=== PATIENT | male | born 1980 | race Caucasian/White ===

== ENCOUNTER 2023-08-09 09:44 | Emergency (ER) | payer OTHER, SELFPAY ==
[2023-08-09 09:47] VITALS: BP 110/65; PULSE 47; RESP 18; TEMP 36.8; O2SAT 98; BMI 25.1
--- NOTE | 2023-08-09 10:04 | ED_ITS ---
HPI - General Adult General Chief complaint: Abdominal Pain Stated complaint: abdominal pain Time Seen by Provider: 08/09/23 09:45 History of Present Illness HPI narrative: low abd pain for several weeks. worse today. denies fevers, vomiting or diarrhea. states had a big BM today 43-year-old man presenting to the emergency department with complaint of intermittent lower abdominal cramping pain. Did have a large bowel movement today. Would not typically consider himself constipated. This pain has been coming and going over the last couple of weeks. Seems to be getting worse. He can be nauseated with the pain. Actually after defecation can have more pain. He has had flares of this pain while driving ?here it comes and ?. Has not noted any melena or hematochezia. No dysuria frequency or urgency. No hematuria. No fever. No vomiting. I note bradycardia on arrival/initial vital. Apparently this has been chronic and he is asymptomatic otherwise their report. Related Data Previous Rx's Medication Instructions Recorded hyoscyamine sulfate 0.125 mg tablet 0.25 mg (2 x 0.125 mg) PO QID PRN 08/09/23 For abdominal cramping #30 tabs Allergies Allergy/AdvReac Type Severity Reaction Status Date / Time No Known Drug Allergies Allergy Verified 08/09/23 09:49 Review of Systems Status of ROS: Reports: 6 or more systems reviewed and unremarkable except as noted in History and below Exam Narrative: Exam Narrative: Pleasant. NAD. Cranial nerves 2-12 look to be intact. Breathing easily. Lungs appear to be clear. Oropharynx is moist. Heart in slow regular rhythm. No murmur rub or gallop. Abdomen with present bowel sounds. Soft without peritoneal signs but generally tender across the low abdomen right greater than left. No masses appreciated. Const: Vital Signs, click to edit/add: Vital Signs - 24 hr 08/09/23 09:47 Temperature 98.2 F Pulse Rate [Right Pulse Oximeter] 47 L Respiratory Rate 18 Blood Pressure [Ri ght Upper Arm] 110/65 Pulse Oximetry 98 Oxygen Delivery Me thod Room Air Documenting provider has reviewed patient's vital signs: yes Course Vital Signs Vital signs: Initial Vital Signs Temperature 98.2 F 08/09/23 09:47 Temperature Source Temporal Artery Scan 08/09/23 09:47 Pulse Rate 47 L 08/09/23 09:47 Respiratory Rate 18 12/01/23 09:47 Blood Pressure 110/65 08/09/23 09:47 Blood Pressure Mean 80 08/09/23 09:47 Blood Pressure Position Sitting 08/09/23 09:47 Pulse Oximetry 98 08/09/23 09:47 Oxygen Delivery Method Room Air 08/09/23 09:47 Vital Signs Temperature 98.2 F 08/09/23 09:47 Pulse Rate 47 L 08/09/23 09:47 Respiratory Rate 18 08/09/23 09:47 Blood Pressure 110/65 08/09/23 09:47 Pulse Oximetry 98 08/09/23 09:47 Oxygen Delivery Method Room Air 08/09/23 09:47 Temperature 98.2 F 08/09/23 09:47 Pulse Rate 40 L 08/09/23 13:05 Respiratory Rate 18 08/09/23 13:05 Blood Pressure 116/59 L 08/09/23 13:05 Pulse Oximetry 98 08/09/23 13:05 Oxygen Delivery Method Room Air 08/09/23 13:05 Medications Administered Medications: Discontinued Medications Generic Name Dose Route Start Last Admin Trade Name Freq PRN Reason Stop Dose Admin Sodium Chloride 1,000 mls @ 1,000 mls/hr 08/09/23 11:54 08/09/23 13:39 0.9 % Sodium Chloride 1000 Ml IV 08/09/23 12:53 Infused .Q1H K[facility]IDEN Infusion Medical Decision Making MDM Narrative Medical decision making narrative: Given duration of symptoms I think warrants imaging. Could as some more indolent process like malignancy. I suppose appendicitis could still be in differential. Enteritis or colitis though symptoms seem a little inconsistent. Constipation. Prostatitis. Urinary retention/infection. Hypoperfusion or ischemia? Bladder scan was about 50 mL. Proceeded then with labs which were unremarkable. Received L normal saline. Proceeded with contrasted CT of abdomen pelvis. I did review images of the CT. Appear to have some mild bladder wall thickening generally by my read. I did discuss this with Mr. Pretty. Radiology over-read though as below INDICATION: Lower abdominal cramping, predominantly on the right side TECHNIQUE: CT abdomen and pelvis acquired with 84 cc Isovue 370 IV contrast. COMPARISON: None. FINDINGS: Lower chest: Unremarkable. Liver: Unremarkable. Normal in size and attenuation. No suspicious masses. Gallbladder and bile ducts: Unremarkable. No stones or inflammation. No biliary dilatation. Pancreas: Unremarkable. No mass or inflammation. Spleen: Unremarkable. Normal in size. No masses. Adrenal glands: Unremarkable. No nodules. Kidneys: Unremarkable. No suspicious masses, stones, or hydronephrosis. GI tract: No evidence of bowel obstruction or inflammation. The few colonic diverticula. Vasculature: Abdominal aorta is normal in caliber. Mesenteric arteries are patent. Lymph nodes: No lymphadenopathy. Peritoneum/Abdominal Wall: Unremarkable. No sign of mass or infiltration. No free air or significant free fluid. Pelvis: There is mild circumferential bladder wall thickening. The prostate is within normal limits in size. The seminal vesicles are slightly enlarged with some wall enhancement. Bones: No acute fracture or malalignment. No suspicious osseous lesions. IMPRESSION: 1. The seminal vesicles are slightly enlarged with some wall enhancement, a nonspecific finding which can be seen with seminal vesiculitis. 2. Very mild circumferential bladder wall thickening which can be seen with bladder outlet obstruction or cystitis. Recommend correlation with urinalysis. 3. No free fluid or free air. No intra-abdominal abscess. I did return to complete a genitourinary exam. Testicles are symmetrical without tenderness and no masses appreciated. No evidence of hernia. Prostate exam with prostate noted to be smooth and not particularly tender. 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 Overall during time in the emergency department symptoms and settled and was improved. Perhaps symptoms represents some nonspecific irritable bowel? Some degree of constipation related? See patient discharge plan Lab Data Lab results reviewed: Yes I reviewed the patient's lab results Labs: Lab Results 08/09/23 08/09/23 Range/Units 10:10 10:45 WBC 4.59 (4.50-11.00) K/uL RBC 5.57 (4.30-5.90) m/uL Hgb 15.9 (13.5-17.5) gm/dL Hct 46.9 (37.0-53.0) % MCV 84 (80-100) fL MCH 29 (26-34) pg MCHC 34 (32-36) gm/dL RDW Coeff of Anay 11.7 (11.5-15.5) % Plt Count 238 (140-440) K/uL Neut % (Auto) 64.7 (42.0-72.0) % Lymph % (Auto) 25.5 (20-44) % Bartholomew % (Auto) 7.4 (0.0-11.0) % Eos % (Auto) 1.5 (0.0-7.0) % Baso % (Auto) 0.7 (0.0-3.0) % Neut # (Auto) 2.97 (1.7-7.0) K/uL Lymph # (Auto) 1.17 (0.90-2.90) K/uL Bartholomew # (Auto) 0.30 (0.00-0.90) K/UL Eos # (Auto) 0.07 (0.00-0.50) K/uL Baso # (Auto) 0.03 (0.00-0.30) K/uL Abs Immat Gran (auto) 0.01 (0.00-0.30) K/uL Imm/Tot Granulo (auto) 0.2 % ESR 2 (2-15) mm/hr Sodium 139 (135-149) mmol/L Potassium 4.0 (3.6-5.1) mmol/L Chloride 107 (96-114) mmol/L Carbon Dioxide 23 (20-32) mmol/L Anion Gap 9 (7-15) mEq/L BUN 16 (5-24) mg/dL Creatinine 0.8 (0.5-1.5) mg/dL Estimated Creat Clear 130.68 Estimated GFR 113 ml/min Glucose 109 (60-115) mg/dL Calcium 8.8 (8.4-10.6) mg/dL Total Bilirubin 0.8 (0.1-1.5) mg/dL Direct Bilirubin 0.0 (0.0-0.5) mg/dL AST 28 (12-35) U/L ALT 26 (4-50) U/L Alkaline Phosphatase 71 (40-150) U/L C-Reactive Protein < 0.5 L (0.5-1.0) mg/dL Total Protein 6.9 (6.0-8.3) g/dL Albumin 4.6 (3.3-5.0) g/dL Lipase 62 (23-300) U/L Urine Color Yellow (Yellow) Urine Appearance Clear (Clear) Urine pH 7.5 (5.0-8.5) Ur Specific [place] 1.020 (1.000-1.030) Urine Protein Negative (Negative) Urine Glucose (UA) Negative (Negative) Urine Ketones Trace A (Negative) Urine Blood Negative (Negative) Urine Nitrite Negative (Negative) Urine Bilirubin Negative (Negative) Urine Urobilinogen 0.2 (0.2-1.0) Ur Leukocyte Esterase Negative (Negative) Urine RBC 0-2 (0-2) Urine WBC 0-2 (0-5) Ur Squamous Epith Cells None (None-Few) Urine Bacteria None (None) Discharge Plan Discharge Clinical Impression: Seminal vesiculitis, Colicky abdominal pain Condition: Improved Additional Instructions: Continue to stay well-hydrated drinking 2-3 L of water/liquid daily. As I said, I think it would be a good idea to avoid having these larger bowel movements, at least for now. Probably could add MiraLax equivalent to your fluid regimen at least a couple of times daily over the next 1-2 weeks. Senna product can stimulate more regular bowel movements if needed. Please follow-up with primary care provider regarding findings here in [place] as well as your symptoms. Ideally within the next 3 weeks. I would also over the next 3-4 days take 400-600 mg of ibuprofen 3 times daily, maybe with a little food. Alternative to that would be up to 500 mg naproxen 2 times daily over this same time. Take copy of your imaging over-read by radiology and disc of images to follow- up. Prescriptions: New hyoscyamine sulfate 0.125 mg tablet 0.25 mg PO QID PRN (Reason: For abdominal cramping) Qty: 30 1RF Follow Up/Referrals: Provider,Not a Local [Primary Care Provider] - Stand Alone Forms: MyHealth Info Instructions
--- NOTE | 2023-08-09 10:44 | CRLHL7_ITS ---
For Patients: As a result of the Century Cures Act, medical imaging exams and procedure reports are released immediately into your electronic medical record. You may view this report before your referring provider. If you have questions, please contact your health care provider. INDICATION: Lower abdominal cramping, predominantly on the right side TECHNIQUE: CT abdomen and pelvis acquired with 84 cc Isovue 370 IV contrast. COMPARISON: None. FINDINGS: Lower chest: Unremarkable. Liver: Unremarkable. Normal in size and attenuation. No suspicious masses. Gallbladder and bile ducts: Unremarkable. No stones or inflammation. No biliary dilatation. Pancreas: Unremarkable. No mass or inflammation. Spleen: Unremarkable. Normal in size. No masses. Adrenal glands: Unremarkable. No nodules. Kidneys: Unremarkable. No suspicious masses, stones, or hydronephrosis. GI tract: No evidence of bowel obstruction or inflammation. The few colonic diverticula. Vasculature: Abdominal aorta is normal in caliber. Mesenteric arteries are patent. Lymph nodes: No lymphadenopathy. Peritoneum/Abdominal Wall: Unremarkable. No sign of mass or infiltration. No free air or significant free fluid. Pelvis: There is mild circumferential bladder wall thickening. The prostate is within normal limits in size. The seminal vesicles are slightly enlarged with some wall enhancement. Bones: No acute fracture or malalignment. No suspicious osseous lesions. IMPRESSION: 1. The seminal vesicles are slightly enlarged with some wall enhancement, a nonspecific finding which can be seen with seminal vesiculitis. 2. Very mild circumferential bladder wall thickening which can be seen with bladder outlet obstruction or cystitis. Recommend correlation with urinalysis. 3. No free fluid or free air. No intra-abdominal abscess. Please note that all CT scans at this facility use dose modulation, iterative reconstruction, and/or weight-based dosing when appropriate to reduce radiation dose to as low as reasonably achievable. Dictated by Boris Grant MD @ 08/09/2023 12:33:38 PM (Electronically Signed)
[2023-08-09 11:00] LABS: Appearance Urine Clear (Clear); Bilirubin Urine Negative (Negative); Blood Urine Negative (Negative); Color Urine Yellow (Yellow); Glucose Urine Negative (Negative); Ketones Urine Trace (Negative); Leukocyte Esterase Urine Negative (Negative); Nitrite Urine Negative (Negative); Protein Urine Negative (Negative); Urobilinogen Urine 0.2 (0.2-1.0); pH Urine 7.5 (5.0-8.5)
[2023-08-09 11:01] LABS: Hematocrit 46.9 % (37.0-53.0); Hemoglobin* 15.9 gm/dL (13.5-17.5); Mean Corpuscular Hemoglobin 29 pg (26-34); Mean Corpuscular Volume 84 fL (80-100); Red Blood Count 5.57 m/uL (4.30-5.90); White Blood Count* 4.59 K/uL (4.50-11.00)
[2023-08-09 11:02] LABS: Basophils Absolute Auto 0.03 K/uL (0.00-0.30); Basophils Percent Auto 0.7 % (0.0-3.0); Eosinophils Absolute Auto 0.07 K/uL (0.00-0.50); Eosinophils Percent Auto 1.5 % (0.0-7.0); Immature Granulocytes Abs Auto 0.01 K/uL (0.00-0.30); Immature Granulocytes Pct Auto 0.2 %; Lymphocytes Absolute Auto 1.17 K/uL (0.90-2.90); Lymphocytes Percent Auto 25.5 % (20-44); Mean Corpuscular HGB Conc 34 gm/dL (32-36); Monocytes Percent Auto 7.4 % (0.0-11.0); Neutrophils Absolute Auto 2.97 K/uL (1.7-7.0); Neutrophils Percent Auto 64.7 % (42.0-72.0); Platelet Count* 238 K/uL (140-440); RDW Coefficient of Variation % 11.7 % (11.5-15.5)
[2023-08-09 11:13] LABS: RBC Urine 0-2 (0-2); WBC Urine 0-2 (0-5)
[2023-08-09 11:16] LABS: Slide Review Reflex No
[2023-08-09 11:17] LABS: Albumin* 4.6 g/dL (3.3-5.0); Chloride* 107 mmol/L (96-114)
[2023-08-09 11:18] LABS: Sodium* 139 mmol/L (135-149)
[2023-08-09 11:20] LABS: Creatinine* 0.8 mg/dL (0.5-1.5); Est. Creatinine Clearance* 130.68; Estimated Glomerular Filt Rate 113 ml/min
[2023-08-09 11:21] LABS: Alanine Aminotransferase* 26 U/L (4-50); Alkaline Phosphatase* 71 U/L (40-150); Anion Gap 9 mEq/L (7-15); Aspartate Amino Transferase* 28 U/L (12-35); Bilirubin Total* 0.8 mg/dL (0.1-1.5); Blood Urea Nitrogen* 16 mg/dL (5-24); Calcium* 8.8 mg/dL (8.4-10.6); Carbon Dioxide* 23 mmol/L (20-32); Glucose* 109 mg/dL (60-115); Lipase* 62 U/L (23-300); Total Protein* 6.9 g/dL (6.0-8.3)
[2023-08-09 11:26] LABS: C Reactive Protein* < 0.5 mg/dL (0.5-1.0)
[2023-08-09] MEDS: 0.9 % SODIUM CHLORIDE 1000 ml 1,000 ML IV (11:56)
[2023-08-09 12:00] LABS: Erythrocyte SedimentationRate* 2 mm/hr (2-15)
[2023-08-09 13:05] VITALS: BP 116/59; PULSE 40; RESP 18; O2SAT 98
== END 2023-08-09 13:40 | disposition home or self-care (01) ==
PROVIDERS: Emergency Provider Family Medicine
DX: R10.9 Unspecified abdominal pain (principal); N49.0 Inflammatory disorders of seminal vesicle
CPT/HCPCS: 36415; 74177; 80048; 80076; 81001; 83690; 85025; 85651; 86140; 99283; 99284; J7030; Q9967

== ENCOUNTER 2024-04-02 19:13 | Emergency (ER) | payer BC, SELFPAY ==
[2024-04-02 19:31] VITALS: BP 97/56; PULSE 50; RESP 16; TEMP 36.9; O2SAT 98; BMI 24.4
[2024-04-02 19:38] VITALS: RESP 18; O2SAT 99
--- NOTE | 2024-04-02 19:47 | ED_ITS ---
HPI - General Adult General Time Seen by Provider: 19:47 Date Seen: 04/02/24 Chief complaint: Unspecified Complaint, Adult Stated complaint: face burning sensation, hiccups Time Seen by Provider: 04/02/24 20:07 Source: patient, RN notes reviewed and old records reviewed Mode of arrival: ambulatory Limitations: no limitations History of Present Illness HPI narrative: Patient is a very pleasant 43-year-old gentleman with history tendency for constipation currently taking Metamucil who comes to the emergency room for evaluation of persistent hiccups. Patient was working on his airplane cleaning it in a well ventilated area when he had the onset of hiccups 4 days ago. He tried many home remedies and unfortunately these persisted even during sleep. He was seen at urgent care yesterday at which time they did a chest x-ray, placed him on Prilosec and Carafate, and gave advice consistent with suspected reflux symptoms. Today he developed redness of his face and neck. He notes he also has a headache in his forehead. He states he feels very warm although he does not have a fever. He also notes a headache on his forehead. As I enter the room he also states that his right ear just popped. He has not had any vomiting. He notes that he tends toward constipation and this week he has and only had small amounts of stool. He denies any recent fever, trauma. He has a headache on his forehead. No neck pain. Able to swallow without difficulty. His abdomen is sore from hiccups but denies any other symptoms. No dysuria or hematuria. Patient has attempted Valsalva maneuvers and breath-holding at home and these did not work. He also tried peanut butter which worked only transiently. This has never happened to him in the past. Patient denies any constitutional symptoms such as unusual weight loss, movement problems, night sweats over the past year. Patient and his note that in the past he was seen in the emergency room with some GI issues and possible constipation. They also note in the remote past he had difficulty with swallowing 1 day. They do think he had a follow-up endoscopy which was normal. Related Data Home Medications ?Medication ?Instructions ?Recorded ?Confirmed omeprazole 20 mg capsule,delayed 20 mg PO DAILY 04/02/24 04/02/24 release sennosides 8.6 mg tablet (senna) 8.6 mg PO BID 04/02/24 04/02/24 sucralfate 1 gram tablet 1 g PO QID 04/02/24 04/02/24 Previous Rx's ?Medication ?Instructions ?Recorded hyoscyamine sulfate 0.125 mg tablet 0.25 mg (2 x 0.125 mg) PO QID PRN 08/09/23 For abdominal cramping #30 tabs Allergies Allergy/AdvReac Type Severity Reaction Status Date / Time No Known Drug Allergies Allergy Verified 04/02/24 19:30 Review of Systems Status of ROS: Reports: 10 or more systems reviewed and unremarkable except as noted in History and below Const: Denies: fever, chills, change in weight or night sweats Eyes: Denies: change in vision ENMT: Denies: neck pain or throat swelling Cardio: Denies: chest pain, palpitations, swelling of feet/ankles, lighthea dedness or shortness of breath with exertion Resp: Denies: shortness of breath or cough GI: Reports: abdominal pain (Soreness of the muscular abdominal wall) and constipation (Decreased stools this week.); Denies: nausea, vomiting, heartburn, diarrhea or blood in stool : Denies: painful urination or urinary frequency Musculo: Denies: neck pain Integ/Breast: Reports: redness (Of the face and neck); Denies: rash Neuro: Reports: headache (Frontal) Allergy/Immuno: Denies: throat swelling PFSH PFS Social History Smoking Status: Never smoker Second hand tobacco smoke exposure: No How often do you have a drink containing alcohol: never AUDIT-C Alcohol total score: 0 Non-prescribed substance use: denies use Exam Narrative: Exam Narrative: Alert and oriented. Hip cups occurring every 30-45 seconds sometimes up to a minute. Eyes are clear with EOM full. Oral cavity with moist mucous membranes. Posterior oropharynx is well visualized. TMs bilaterally without abnormality. Neck is supple. Well-demarcated area redness on the nape of the neck. Not excessively warm to the touch. Heart with bradycardic rate but regular rhythm. Lungs are clear. Abdomen soft. Moving all extremities and lower extremities without edema. Const: Vital Signs, click to edit/add: Vital Signs - 24 hr 04/02/24 19:31 04/02/24 19:38 04/02/24 21:55 Temperature 98.5 F 98.5 F Pulse Rate [Pulse Oximeter] 50 L 55 L Respiratory Rate 16 16 Respiratory Rate [ Face] 18 Respiratory Rate [ Throat] 18 Blood Pressure [Ri ght Upper Arm] 97/56 L 112/74 Pulse Oximetry 98 98 Oxygen Delivery Me thod Room Air Room Air 04/02/24 21:56 Temperature 98.5 F Pulse Rate [Pulse Oximeter] 55 L Respiratory Rate 16 Respiratory Rate [ Face] Respiratory Rate [ Throat] Blood Pressure [Ri ght Upper Arm] 112/74 Pulse Oximetry Oxygen Delivery Me thod Documenting provider has reviewed patient's vital signs: yes Course Course ED Course: At this time differential diagnosis is quite broad as hiccups have been ongoing for greater than 48 hours. Today is day 4. Today he did develop some flushing redness of the face and neck. He does appear to be quite exhausted from this. Differential diagnosis is quite broad in this aspect. They range from [employer] abnormalities to cancers. At this time most likely diagnosis is phrenic nerve stimulation secondary to constipation. However given the fact that this been been ongoing for quite some time we are following up-to-date flow chart. We will check laboratory values tonight as well as do abdominal flat plate and upright. Will also check COVID and strep. Reevaluation(s) Reevaluation #1: Patient noted to have reassuring laboratory values. This would include a normal white count, CRP, hemoglobin, kidney function, electrolytes, lactate. Lipase within normal limits. Urinalysis with trace ketones and no evidence of UTI patient has tested positive for COVID flu RSV and strep. A point of care troponin is negative and EKG is without any evidence of acute ST or T-wave changes. Given these negative findings we will go through the list of up-to-date suggestions for terminating hiccups. Reevaluation #2: Patient had complete relief of if hiccups with a tsp of dry sugar. Patient did continue to be monitored in the ED following this. Hiccups have not returned at this time. Reevaluation #3: ?Causes of persistent hiccups include central nervous system disease, gastroesophageal disease (including reflux), post-operative phrenic nerve irritation, intrathoracic or neck mass, foreign body in the external ear canal, acute heart disease, intra-abdominal processes, emotional stress/excitement, metabolic derangements including kidney failure and electrolyte abnormalities, and medications. At this time patient has normal laboratory values, no evidence of palpable neck mass. Chest x-ray read as normal yesterday per family and no medications listed as etiological possibilities. Vital Signs Vital signs: Initial Vital Signs Temperature 98.5 F 04/02/24 19:31 Temperature Source Temporal Artery Scan 04/02/24 19:31 Pulse Rate 50 L 04/02/24 19:31 Respiratory Rate 16 04/02/24 19:31 Blood Pressure 97/56 L 04/02/24 19:31 Blood Pressure Mean 69 L 04/02/24 19:31 Blood Pressure Position Sitting 04/02/24 19:31 Pulse Oximetry 98 04/02/24 19:31 Oxygen Delivery Method Room Air 04/02/24 19:31 Vital Signs Temperature 98.5 F 04/02/24 19:31 Pulse Rate 50 L 04/02/24 19:31 Respiratory Rate 16 04/02/24 19:31 Blood Pressure 97/56 L 04/02/24 19:31 Pulse Oximetry 98 04/02/24 19:31 Oxygen Delivery Method Room Air 04/02/24 19:31 Temperature 98.5 F 04/02/24 21:56 Pulse Rate 55 L 04/02/24 21:56 Respiratory Rate 16 04/02/24 21:56 Blood Pressure 112/74 04/02/24 21:56 Pulse Oximetry 98 04/02/24 21:55 Oxygen Delivery Method Room Air 04/02/24 21:55 Medical Decision Making MDM Narrative Medical decision making narrative: 1. Hiccups-hiccups have terminated at this time with the use of a dried tsp of sugar. Patient did not tolerate any pressure over the eyeballs and he had tried breath-holding in the Valsalva maneuver at home. Given the fact that the sugar work we did not proceed on to using a lemon or having his knees to his chest. If the hiccups return it is suggested that he have further workup including CTs for possible underlying etiology although laboratory values EKG and COVID/strep swabs were all reassuring and negative tonight. 2. Facial redness-this included his neck. However when I do look at his neck this is well demarcated in represents what I believe to be a sunburn. Patient states however he was wearing a had any does not understand why his face may be red. There is maybe some slight flushing but the area does not appear warm to the touch. He does have a mild headache as well. I would expect his whole body to have this sort of flushing if we are dealing with a medication reaction. He denies using tetracyclines or any other medication that would make 1 more susceptible to UV light irritation. I am hoping with the resolution of the hiccups that his other symptoms would resolve as well. Will continue to monitor. 3. Bradycardia-patient notes that this is normal for him. Heart rate 40 for in the ED. 4. Disposition-home at this time. Return to the emergency room for worsening symptoms. I have suggested MiraLax as he describes over the last week not having adequate bowel movements. I would do MiraLax dosing q.12 hours until he feels that he has adequately stooled. Again, if he does return to the emergency room suggest further workup per up-to-date guidelines. Medical Records Medical records reviewed: Yes I reviewed the patient's medical records Lab Data Lab results reviewed: Yes I reviewed the patient's lab results Labs: Lab Results 04/02/24 04/02/24 04/02/24 Range/Units 20:24 20:25 20:30 WBC 6.99 (4.50-11.00) K/uL RBC 5.49 (4.30-5.90) m/uL Hgb 15.7 (13.5-17.5) gm/dL Hct 46.7 (37.0-53.0) % MCV 85 (80-100) fL MCH 29 (26-34) pg MCHC 34 (32-36) gm/dL RDW Coeff of Anay 12.0 (11.5-15.5) % Plt Count 190 (140-440) K/uL Neut % (Auto) 52.6 (42.0-72.0) % Lymph % (Auto) 37.8 (20-44) % [place] % (Auto) 6.2 (0.0-11.0) % Eos % (Auto) 2.7 (0.0-7.0) % Baso % (Auto) 0.6 (0.0-3.0) % Neut # (Auto) 3.68 (1.7-7.0) K/uL Lymph # (Auto) 2.64 (0.90-2.90) K/uL Davison # (Auto) 0.40 (0.00-0.90) K/UL Eos # (Auto) 0.19 (0.00-0.50) K/uL Baso # (Auto) 0.04 (0.00-0.30) K/uL Abs Immat Gran (auto) 0.01 (0.00-0.30) K/uL Imm/Tot Granulo (auto) 0.1 % Sodium 139 (135-149) mmol/L Potassium 4.0 (3.6-5.1) mmol/L Chloride 103 (96-114) mmol/L Carbon Dioxide 29 (20-32) mmol/L Anion Gap 7 (7-15) mEq/L BUN 21 (5-24) mg/dL Creatinine 0.9 (0.5-1.5) mg/dL Estimated Creat Clear 116.16 Estimated GFR 109 ml/min Glucose 95 (60-115) mg/dL Lactate 1.0 (0.5-1.9) mmol/L Calcium 9.5 (8.4-10.6) mg/dL Total Bilirubin 0.7 (0.1-1.5) mg/dL AST 25 (12-35) U/L ALT 26 (4-50) U/L Alkaline Phosphatase 81 (40-150) U/L C-Reactive Protein < 0.5 L (0.5-1.0) mg/dL Total Protein 7.2 (6.0-8.3) g/dL Albumin 4.9 (3.3-5.0) g/dL Lipase 74 (23-300) U/L Urine Color Yellow (Yellow) Urine Appearance Clear (Clear) Urine pH 7.0 (5.0-8.5) Ur Specific [place] 1.015 (1.000-1.030) Urine Protein Negative (Negative) Urine Glucose (UA) Negative (Negative) Urine Ketones Trace A (Negative) Urine Blood Negative (Negative) Urine Nitrite Negative (Negative) Urine Bilirubin Negative (Negative) Urine Urobilinogen 0.2 (0.2-1.0) Ur Leukocyte Esterase Negative (Negative) Urine RBC 0-2 (0-2) Urine WBC 0-2 (0-5) Ur Squamous Epith Cells Moderate A (None-Few) Urine Bacteria None (None) SARS-CoV-2 (PCR) Negative SARS-CoV-2 (Negative) Influenza Type A (PCR) Negative PCR FLU A (Negative) Influenza Type B (PCR) Negative PCR FLU B (Negative) RSV (PCR) Negative PCR RSV (Negative) Group A Strep DNA NOT DETECTED (Not Detectd) POC Troponin I 0.00 L (0.01-0.04) ng/ml Imaging Data Abdomen x-ray: Attestation: I have reviewed the pertinent imaging results. Radiologist's impression: owel: The bowel gas pattern is normal without evidence of bowel obstruction. Soft tissue: No evidence of pneumoperitoneum present. No suspicious calcifications noted. Bone: Unremarkable for age. IMPRESSION: 1. Unremarkable appearance of the visualized abdomen. ECG Data Attestation: I personally reviewed and interpreted this ECG as follows: Interpretation: By my read a EKG shows sinus bradycardia at a rate of [address] or T-wave changes noted. QT and VA intervals within normal limits. Discharge Plan Discharge Clinical Impression: Hiccups Patient Disposition: Home, Self-Care Condition: Improved Additional Instructions: Continue medication per [facility] suggestions. I would suggest starting MiraLax as you described your GI system being somewhat backed up. There was no evidence of a bowel obstruction on your x-ray. I would suggest 1 dose of MiraLax tonight and continue morning and night until you feel like you are cleaned out. Return to the emergency room if you started experiencing hiccups again. Prescriptions: No Action hyoscyamine sulfate 0.125 mg tablet 0.25 mg PO QID PRN (Reason: For abdominal cramping) Qty: 30 1RF sennosides [senna] 8.6 mg tablet 8.6 mg PO BID sucralfate 1 gram tablet 1 g PO QID omeprazole 20 mg capsule,delayed release(DR/EC) 20 mg PO DAILY Follow Up/Referrals: Provider,Not a Local [Primary Care Provider] - Stand Alone Forms: [facility]
--- NOTE | 2024-04-02 20:05 | CRLHL7_ITS ---
For Patients: As a result of the Cures Act, medical imaging exams and procedure reports are released immediately into your electronic medical record. You may view this report before your referring provider. If you have questions, please contact your health care provider. INDICATION: Intermittent lower abdominal cramping sensation TECHNIQUE: Abdomen Pelvis radiograph 3 views COMPARISON: None FINDINGS: Bowel: The bowel gas pattern is normal without evidence of bowel obstruction. Soft tissue: No evidence of pneumoperitoneum present. No suspicious calcifications noted. Bone: Unremarkable for age. IMPRESSION: 1. Unremarkable appearance of the visualized abdomen. Dictated by Gerald Washington MD @ 04/02/2024 8:35:48 PM Dictated by: Gerald Washington MD @ 04/02/2024 20:35:56 (Electronically Signed)
[2024-04-02 20:33] LABS: Basophils Absolute Auto 0.04 K/uL (0.00-0.30); Basophils Percent Auto 0.6 % (0.0-3.0); Eosinophils Absolute Auto 0.19 K/uL (0.00-0.50); Eosinophils Percent Auto 2.7 % (0.0-7.0); Hematocrit 46.7 % (37.0-53.0); Hemoglobin* 15.7 gm/dL (13.5-17.5); Immature Granulocytes Abs Auto 0.01 K/uL (0.00-0.30); Immature Granulocytes Pct Auto 0.1 %; Lymphocytes Absolute Auto 2.64 K/uL (0.90-2.90); Lymphocytes Percent Auto 37.8 % (20-44); Mean Corpuscular HGB Conc 34 gm/dL (32-36); Mean Corpuscular Hemoglobin 29 pg (26-34); Mean Corpuscular Volume 85 fL (80-100); Monocytes Percent Auto 6.2 % (0.0-11.0); Neutrophils Absolute Auto 3.68 K/uL (1.7-7.0); Neutrophils Percent Auto 52.6 % (42.0-72.0); Platelet Count* 190 K/uL (140-440); Red Blood Count 5.49 m/uL (4.30-5.90); White Blood Count* 6.99 K/uL (4.50-11.00)
[2024-04-02 20:40] LABS: Appearance Urine Clear (Clear); Bilirubin Urine Negative (Negative); Blood Urine Negative (Negative); Color Urine Yellow (Yellow); Glucose Urine Negative (Negative); Ketones Urine Trace (Negative); Leukocyte Esterase Urine Negative (Negative); Nitrite Urine Negative (Negative); Protein Urine Negative (Negative); Specific Gravity Urine 1.015 (1.000-1.030); Urobilinogen Urine 0.2 (0.2-1.0)
[2024-04-02 20:46] LABS: Albumin* 4.9 g/dL (3.3-5.0); Chloride* 103 mmol/L (96-114); Sodium* 139 mmol/L (135-149)
[2024-04-02 20:48] LABS: Creatinine* 0.9 mg/dL (0.5-1.5); Est. Creatinine Clearance* 116.16; Estimated Glomerular Filt Rate 109 ml/min
[2024-04-02 20:49] LABS: RBC Urine 0-2 (0-2); WBC Urine 0-2 (0-5)
[2024-04-02 20:49] LABS: Alanine Aminotransferase* 26 U/L (4-50); Alkaline Phosphatase* 81 U/L (40-150); Anion Gap 7 mEq/L (7-15); Aspartate Amino Transferase* 25 U/L (12-35); Bilirubin Total* 0.7 mg/dL (0.1-1.5); Blood Urea Nitrogen* 21 mg/dL (5-24); Carbon Dioxide* 29 mmol/L (20-32); Lipase* 74 U/L (23-300); Total Protein* 7.2 g/dL (6.0-8.3)
[2024-04-02 20:50] LABS: Calcium* 9.5 mg/dL (8.4-10.6); Glucose* 95 mg/dL (60-115); Slide Review Reflex No
[2024-04-02 20:50] LABS: Squamous Epithelial Cell Urine Moderate (None-Few)
[2024-04-02 21:02] LABS: C Reactive Protein* < 0.5 mg/dL (0.5-1.0)
[2024-04-02 21:06] LABS: Strep A DNA Probe* NOT DETECTED (Not Detectd)
[2024-04-02 21:16] LABS: PCR FLU A Negative PCR FLU A (Negative); PCR FLU B Negative PCR FLU B (Negative); PCR RSV Negative PCR RSV (Negative); SARS PCR* Negative SARS-CoV-2 (Negative)
[2024-04-02 21:55] VITALS: BP 112/74; PULSE 55; RESP 16; TEMP 36.9; O2SAT 98
[2024-04-02 21:56] VITALS: BP 112/74; PULSE 55; RESP 16; TEMP 36.9
== END 2024-04-02 21:56 | disposition home or self-care (01) ==
PROVIDERS: Emergency Provider Family Medicine
DX: R06.6 Hiccough (principal); R00.1 Bradycardia, unspecified
CPT/HCPCS: 36415; 74019; 80053; 81001; 83605; 83690; 84484; 85025; 86140; 87631; 87651; 93005; 99284